=== PATIENT | female | born 1965 | race Caucasian/White ===

== ENCOUNTER → 2020-07-07 | Outpatient (CLI) | payer OTHER ==
[2020-07-07 11:02] LABS: HEMOGLOBIN 13.1 gm/dl (12.3-15.3); RED BLOOD COUNT 4.06 M/UL (4.00-5.10); WHITE BLOOD COUNT 8.3 K/UL (4.5-11.0)
== END ==
LOC: LAB 09:47
PROVIDERS: Nurse Practitioner Family
DX: R76.8 Other specified abnormal immunological findings in serum (principal); D89.9 Disorder involving the immune mechanism, unspecified; M25.50 Pain in unspecified joint; D64.9 Anemia, unspecified; E55.9 Vitamin D deficiency, unspecified; M79.10 Myalgia, unspecified site
CPT/HCPCS: 36415; 82550; 82728; 83520; 85025; 85652; 86140; 86431